=== PATIENT | male | born 1940 | race Caucasian/White ===

== ENCOUNTER 2017-10-29 08:45 | Emergency (ER) | payer MEDICARE ==
--- NOTE | 2017-10-29 09:40 | XRAY Report ---
Procedure Date: 10/29/2017 Accession Number: [id number] / [id number] Procedure: XR - Ribs w/PA Chest LT CPT Code: FULL RESULT: EXAM: LEFT RIB RADIOGRAPHY 2 VIEWS EXAM DATE: 10/29/2017. CLINICAL HISTORY: Fell and has pain to posterior left rib area. COMPARISON: None. TECHNIQUE: PA view of the chest and posterior oblique views of the left ribs. FINDINGS: Bones: Nondisplaced fractures of lateral left sixth, seventh and eighth ribs. Small adjacent subpleural hematoma. Degenerative changes of the spine. Partially visualized is a lower cervical fusion. Lungs: Normal vasculature. Mild left lower lung atelectasis. No pleural fluid or pneumothorax. 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 Atherosclerosis of the aorta. IMPRESSION: Nondisplaced fractures of lateral left sixth, seventh and eighth ribs. Small subpleural hematoma adjacent to the fractures. Mild left lower lung atelectasis. No hemothorax or pneumothorax. 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 RADIA
--- NOTE | 2017-10-29 09:56 | ED Physician Documentation ---
PD HPI TRUNK INJURY - Stated complaint Stated Complaint: GLF/BACK/LT SIDE PX - Chief complaint Chief Complaint: Trauma Ch/Bk - History obtained from History obtained from: Patient, Family - History of Present Illness Location: Posterior chest, Left chest Type of injury: Fall Timing - onset: Last night Timing - duration: Hours Timing - details: Abrupt onset, Still present Quality: Pain, Spasm, Sharp Improved by: Rest Worsened by: Moving, Palpating Associated symtptoms: No: Weakness, Numbness, Tingling, Swelling, Discoloration Contributing factors: No: Anticoagulated Where injury occured: Home Similar symptoms before: Has not had sx before Recently seen: Not recently seen - Additional information Additional information: Previously healthy 77-year-old male who is visiting from [place] was in his trailer last night in his shower and he states that he was lathered up and slipped on the floor fell through the door and landed against the commode on his back. He complains of pain to his left mid back posteriorly. He has trouble with deep breathing and with moving around. He has not coughed up any blood he is not short of breath. Review of Systems Constitutional: denies: Fever Eyes: denies: Decreased vision Ears: denies: Ear pain Nose: denies: Congestion Throat: denies: Sore throat Cardiac: denies: Chest pain / pressure, Palpitations Respiratory: denies: Dyspnea, Cough GI: denies: Abdominal Pain, Nausea, Vomiting : denies: Dysuria, Frequency Skin: denies: Rash Musculoskeletal: denies: Neck pain, Back pain, Extremity pain Neurologic: denies: Generalized weakness, Focal weakness, Numbness PD PAST MEDICAL HISTORY - Present Medications Home Medications: Ambulatory Orders Medication Instructions Recorded Confirmed HYDROcod/ACETAM 5/325 [[place] 5/325] 1 - 2 ea PO Q6H PRN #15 tablet 10/29/17 - Allergies Allergies/Adverse Reactions: Allergies Allergy/AdvReac Type Severity Reaction Status Date / Time No Known Drug Allergies Allergy Verified 10/29/17 08:59 PD ED PE NORMAL - Vitals Vital signs reviewed: Yes (hypertensive ) - General General: Alert and oriented X 3, No acute distress, Well developed/nourished - HEENT HEENT: Atraumatic, PERRL, EOMI - Neck Neck: Supple, no meningeal sign, No bony TTP - Cardiac Cardiac: RRR, No murmur - Respiratory Respiratory: No respiratory distress, Clear bilaterally, Other (tenderness to palpation of the chest wall posteriorly on the left .) - Abdomen Abdomen: Soft, Non tender - Back Back: No CVA TTP, No spinal TTP - Derm Derm: Normal color, Warm and dry, No rash - Extremities Extremities: No deformity, No edema - Neuro Neuro: Alert and oriented X 3, bleach maker 2-12 intact, No motor deficit, No sensory deficit, Normal speech Eye Opening: Spontaneous Motor: Obeys Commands Verbal: Oriented GCS Score: 15 - Psych Psych: Normal mood, Normal affect Results - Vitals Vitals: Vital Signs - 24 hr 10/29/17 08:54 Temperature 36.6 C Heart Rate 97 Respiratory 16 Rate Blood Pressure 189/88 H O2 Saturation 94 - Rads (name of study) ribs with PA chest left Radiology: Prelim report reviewed (Impression: Nondisplaced fractures of lateral left sixth seventh and eighth ribs. Small subpleural hematoma adjacent to the fractures. Mild left lower lung atelectasis. No hemo-or pneumothorax. Deviation of the lower cervical trachea to the left most commonly from right thyroid enlargement.), EMP read indepedently, See rad report PD MEDICAL DECISION MAKING - ED course Complexity details: reviewed results, re-evaluated patient, considered differential, d/w patient, d/w family ED course: 77-year-old male who is visiting here from [place] appears to be in good health he has had a cervical fusion previously and now he is fallen in his trailer and broken 3 ribs on the left side. With his advanced age and multiple rib fractures admission is considered however the patient appears well and admission now is not warranted I have administered hydrocodone to the patient and I have indicated that he will likely have issues with pain control and will need to provide adequate pulmonary toilet. I have written prescription for the patient for some pain medication and asked him to follow-up with a local primary care clinic for ongoing care as this is likely going to be necessary for the next 6 weeks. I have encouraged the patient to return to the hospital for failure as admission in his age group is frequently required for pain control and pulmonary toilet. - Sepsis Event Vital Signs: Vital Signs - 24 hr 10/29/17 08:54 Temperature 36.6 C Heart Rate 97 Respiratory 16 Rate Blood Pressure 189/88 H O2 Saturation 94 Departure - Departure Disposition: Home, Self Care Clinical Impression: Multiple fractures of ribs of left side Qualifiers: Encounter type: initial encounter Fracture type: closed Qualified Code(s): S22.42XA - Multiple fractures of ribs, left side, initial encounter for closed fracture Condition: Stable Instructions: ED Fx Rib Follow-Up: [facility] [Provider Group] Prescriptions: HYDROcod/ACETAM 5/325 [[place] 5/325] 1 - 2 ea PO Q6H PRN #15 tablet PRN Reason: Pain
[2017-10-29] MEDS: HYDROcod/ACETAM 5/325 MG TABLET PO STA (10:03)
[2017-10-29 10:17] VITALS: BP 150/88
== END 2017-10-29 10:17 | disposition home or self-care (01) ==
LOC: ED 08:45
DX: S22.42XA Multiple fractures of ribs, left side, initial encounter for closed fracture (principal); W18.2XXA Fall in (into) shower or empty bathtub, initial encounter; Y93.E1 Activity, personal bathing and showering; Y92.022 Bathroom in mobile home as the place of occurrence of the external cause; Z98.1 Arthrodesis status
CPT/HCPCS: 71101; 99283; 99284; A9270

== ENCOUNTER 2017-12-01 16:09 | Emergency (ER) | payer MEDICARE ==
--- NOTE | 2017-12-01 17:29 | XRAY Report ---
Reason: cough Procedure Date: 12/01/2017 Accession Number: [id number] / [id number] Procedure: XR - Chest 2 View X-Ray CPT Code: 06632 FULL RESULT: EXAM: CHEST RADIOGRAPHY EXAM DATE: 12/01/2017 04:59 PM. CLINICAL HISTORY: Cough COMPARISON: 10/29/2017. TECHNIQUE: 2 views. FINDINGS: Lungs/Pleura: Small to moderate left pleural effusion with adjacent hazy left lung base opacity. Lungs otherwise clear. No pneumothorax. Normal volumes. Mediastinum: Heart and mediastinal contours are unremarkable. Other: Left sixth, seventh and eighth rib fractures are unchanged. IMPRESSION: Small to moderate left pleural effusion. Adjacent opacity could represent atelectasis or pneumonia. Unchanged left rib fractures. RADIA
[2017-12-01 17:54] VITALS: BP 158/63
--- NOTE | 2017-12-01 18:08 | ED Physician Documentation ---
PD HPI URI - Stated complaint Stated Complaint: CP/COUGH - Chief complaint Chief Complaint: Resp - History obtained from History obtained from: Patient - History of Present Illness Timing - onset: How many weeks ago (1) Timing duration: Weeks (1) Timing details: Gradual onset, Still present Associated symptoms: Sweats, Dry cough Contributing factors: Travel, Other (rib fractures) Improves by: Rest, Medication Worsened by: Activity, Breathing, Position Similar symptoms before: Has not had sx before Recently seen: Emergency Dept - Additional information Additional information: 77-year-old male with recent multiple rib fractures on the left side has had improvement in his rib fracture pain and now is developed significant sweats at night and a cough. He did have an RN check his lungs and had diminished breath sounds in the left base. He is visiting here from [place] and staying in an and plans to leave in about 2 weeks. Review of Systems Constitutional: reports: Chills, Fatigue, Sweats. denies: Fever Eyes: denies: Decreased vision Ears: denies: Ear pain Nose: reports: Congestion. denies: Rhinorrhea / runny nose Throat: denies: Sore throat Cardiac: reports: Chest pain / pressure. denies: Palpitations, Pedal edema, Calf pain Respiratory: reports: Cough. denies: Dyspnea, Wheezing GI: denies: Abdominal Pain, Nausea, Vomiting : denies: Dysuria, Frequency PD PAST MEDICAL HISTORY - Past Surgical History Past Surgical History: Yes Ortho: Spine surgery - Present Medications Home Medications: Ambulatory Orders Medication Instructions Recorded Confirmed HYDROcod/ACETAM 5/325 [[place] 5/325] 1 - 2 ea PO Q6H PRN #15 tablet 10/29/17 Azithromycin [Zithromax] 250 mg PO DAILY #6 tablet 12/01/17 - Allergies Allergies/Adverse Reactions: Allergies Allergy/AdvReac Type Severity Reaction Status Date / Time No Known Drug Allergies Allergy Verified 12/01/17 16:31 - Social History Does the pt smoke?: No Smoking Status: Never smoker Does the pt drink ETOH?: Yes - POLST Patient has POLST: No PD ED PE NORMAL - Vitals Vital signs reviewed: Yes (tachy ) - General General: Alert and oriented X 3, No acute distress, Well developed/nourished, Other (The patient has a slight frequent cough and he splints with each cough. ) - HEENT HEENT: Atraumatic, PERRL, EOMI, Ears normal - Neck Neck: Supple, no meningeal sign, No bony TTP - Cardiac Cardiac: RRR, No murmur - Respiratory Respiratory: No respiratory distress, Other (diminished breath sounds with anterior rhonchi on the left side. There is mild tenderness to the back over the ribs on the left ) - Abdomen Abdomen: Soft, Non tender - Back Back: No CVA TTP, No spinal TTP - Derm Derm: Normal color, Warm and dry, No rash - Extremities Extremities: No deformity, No edema - Neuro Neuro: Alert and oriented X 3, stock receiver 2-12 intact, No motor deficit, No sensory deficit, Normal speech Eye Opening: Spontaneous Motor: Obeys Commands Verbal: Oriented GCS Score: 15 - Psych Psych: Normal mood, Normal affect Results - Vitals Vitals: Vital Signs - 24 hr 12/01/17 12/01/17 16:27 17:53 Temperature 36.7 C 37.3 C Heart Rate 109 H 93 Respiratory 20 18 Rate Blood Pressure 119/77 158/63 H O2 Saturation 96 96 Oxygen O2 Source Room air - Rads (name of study) 2 view chest Radiology: Prelim report reviewed (Impression: [id number] left pleural effusion. Adjacent opacity could represent atelectasis or pneumonia. Unchanged left rib fractures.), EMP read indepedently, See rad report PD MEDICAL DECISION MAKING - ED course Complexity details: reviewed old records, reviewed results, re-evaluated patient , considered differential, d/w patient ED course: 77-year-old male with rib fractures 5 weeks ago has developed cough congestion chest pain and sweats and has what appears to be an infiltrate on his chest x- ray. He is administered Rocephin 1 g IM dexamethasone 10 mg orally and we will place him on some azithromycin. - Sepsis Event Vital Signs: Vital Signs - 24 hr 12/01/17 12/01/17 16:27 17:53 Temperature 36.7 C 37.3 C Heart Rate 109 H 93 Respiratory 20 18 Rate Blood Pressure 119/77 158/63 H O2 Saturation 96 96 Oxygen O2 Source Room air Departure - Departure Disposition: 01 Home, Self Care Clinical Impression: Pneumonia Qualifiers: Pneumonia type: due to unspecified organism Laterality: left Lung location: lower lobe of lung Qualified Code(s): J18.1 - Lobar pneumonia, unspecified organism Condition: Stable Instructions: ED Pneumonia Adult Follow-Up: [facility] [Provider Group] Prescriptions: Azithromycin [Zithromax] 250 mg PO DAILY #6 tablet
[2017-12-01] MEDS ORDERED: DEXAMETHASONE 10 MG/ML VIAL PO STA (18:11)
[2017-12-01] MEDS ORDERED: LIDOCAINE 1% 2 ML VIAL SUBQ ONE (18:11)
[2017-12-01] MEDS ORDERED: cefTRIAXone 1 GM VIAL IM STA (18:11)
== END 2017-12-01 18:50 | disposition home or self-care (01) ==
LOC: ED 16:09
DX: J18.1 Lobar pneumonia, unspecified organism (principal)
CPT/HCPCS: 71046; 96372; 99283